=== PATIENT | male | born 1945 | race Caucasian/White ===

== ENCOUNTER 2018-03-31 12:22 | Emergency (ER) | payer OTHER ==
--- NOTE | 2018-03-31 13:25 | EDPHY ---
H & P Time Seen by Provider: 03/31/18 12:59 HPI/ROS: HPI Right hip dislocation. 72-year-old male by private vehicle with his friends. This patient was skiing up at the [employer]. He bent over to tightening his ski boot in an awkward way and felt his right prosthetic hip dislocate. He reports that this is the 3rd or 4th time this has happened. He denies any other complaint or injury. He denies any loss of sensation or weakness in his right lower extremity. ROS: Constitutional: No fever, no chills. No weakness. Musculoskeletal: No back pain. No neck pain. As above. No other extremity pain. Skin: No lacerations or abrasions. Neurological: No headache. No focal weakness or altered sensation. Past medical history: Hypertension, bilateral hip replacements, adenoidectomy, tendon repair in right foot, left shoulder repair, knee surgeries. Social history: Nonsmoker. He is here with his friends. Denies alcohol. Physical Exam: General Appearance: Alert, no distress. This patient is responding to questions appropriately and in full sentences. This patient appears well- hydrated and well-nourished. Head: Normocephalic atraumatic. Eyes: Pupils equal and round no pallor or injection. No lid edema, erythema or injection. Neurological: Motor sensory function is grossly intact. Cranial nerves are normal. Skin: Warm and dry, no rashes. No lacerations or abrasions. Musculoskeletal: Neck is supple and nontender. Extremities are symmetrical except for shortening and external rotation of the right lower extremity in comparison to the left lower extremity. The right lower extremity is neurovascularly intact. All joints range without pain or impingement except the right hip. Psychiatric: No agitation. No depression. Database: EKG: Imaging: Right hip x-ray series: Significant for right posterior prosthetic hip dislocation. Interpreted by me. Procedures: Procedure: Procedural sedation. Indication: Right hip dislocation. A pre-sedation evaluation was completed on the patient just prior to the procedure. Patient is an appropriate candidate for procedural sedation with ASA class 1E. Mallampati class I. Patient assessed as 332. The risks of the sedation were discussed including but not limited to dysrhythmia, need for airway intervention or general anesthesia, disability, ; and verbal consent obtained. A timeout was observed and patient's identity confirmed. The patient was sedated with 85 mg of IV ketamine 1st attempt, 40 mg of IV ketamine slow push 2nd attempt with success. The patient was monitored with continuous pulse oximetry, capnography, and monitoring specialist. There were no complications and no significant hypoxemia. I remained at the bedside for the sedation. The total time I spent in the procedural sedation was 35 min. Procedure: Dislocation reduction left hip. The right hip was reduced in the usual fashion without complications. Post reduction the patient's neurovascular exam is normal. Post reduction x-ray demonstrates reduction of the joint to the anatomic position. The procedure was performed by myself. Emergency department course: Triage vital signs reviewed and are normal. An IV was placed. The patient was moved from room for to room 1 for procedural sedation. Low-dose IV ketamine will be given for sedation. Patient's medication allergies were reviewed. 3:00 p.m., the patient was re-evaluated, resting comfortably at this time. He is feeling much better. He is still coming out of his sedation. Right lower extremity is neurovascularly intact. Results of his x-rays were discussed with him. 3:30 p.m., patient up and ambulatory under his own power without difficulty. He denies any significant pain. He is asking me if he can go skiing. He feels comfortable going home with his friends who are driving. I discussed follow-up with his docketing specialist at [facility]. Return to emergency department precautions were reviewed with him. All of his questions were answered. He was discharged from the emergency department in good condition with his friends. Differential Diagnosis: The differential diagnosis on this patient includes but is not limited to dislocation of right prosthetic hip. Fracture unlikely. This represents a partial list of diagnoses considered. These considerations are based on history , physical exam, past history, reassessment and diagnostic testing. Smoking Status: Never smoked Constitutional: Initial Vital Signs Temperature (C) 36.6 C 03/31/18 12:27 Heart Rate 66 03/31/18 12:27 Respiratory Rate 16 03/31/18 12:27 Blood Pressure 120/74 03/31/18 12:27 O2 Sat (%) 95 03/31/18 12:27 O2 Delivery Mode [Post Room Air Procedure 4th] O2 Delivery Mode [Post Room Air Procedure 3rd] O2 Delivery Mode [Post Room Air Procedure 2nd] O2 Delivery Mode [Post Non-Rebreather Mask Procedure 1st] O2 Delivery Mode [Procedural Non-Rebreather Mask 6th] O2 Delivery Mode [Procedural Non-Rebreather Mask 5th] O2 Delivery Mode [Procedural Non-Rebreather Mask 4th] O2 Delivery Mode [Procedural Non-Rebreather Mask 3rd] O2 Delivery Mode [Procedural Non-Rebreather Mask 2nd] O2 Delivery Mode [Procedural Non-Rebreather Mask 1st] O2 Delivery Mode [.Immediate Room Air Pre-Procedure] O2 Delivery Mode Room Air O2 (L/minute) [Post Procedure 10 1st] O2 (L/minute) [Procedural 6th] 10 O2 (L/minute) [Procedural 5th] 10 O2 (L/minute) [Procedural 4th] 10 O2 (L/minute) [Procedural 3rd] 10 O2 (L/minute) [Procedural 2nd] 10 O2 (L/minute) [Procedural 1st] 10 Allergies/Adverse Reactions: acetaminophen [From Percocet] Allergy (Verified 03/31/18 12:31) aspirin [From Percodan] Allergy (Verified 03/31/18 12:31) naproxen Allergy (Verified 03/31/18 12:31) oxycodone [From Percocet] Allergy (Verified 03/31/18 12:31) Home Medications: Medication Instructions Recorded Allopurinol 03/31/18 Amlodipine Besylate 03/31/18 Hydrochlorothiazide 03/31/18 Lisinopril 03/31/18 Medical Decision Making - Diagnostics Imaging Results: Imaging Impressions Hip X-Ray 03/31/18 13:21 Impression: Posterior dislocation of the hip arthroplasty. Hip X-Ray 03/31/18 14:20 Impression: Persistent posterior right hip arthroplasty dislocation. Hip X-Ray 03/31/18 14:20 Impression: Apparent interval reduction of right hip arthroplasty dislocation. - Data Points Medications Given: Discontinued Medications Ketamine HCl (Ketamine) 50 mg IVP EDNOW ONE Stop: 03/31/18 14:02 Last Admin: 03/31/18 14:15 Dose: 85 mg Ketamine HCl (Ketamine) 30 mg IVP EDNOW ONE Stop: 03/31/18 14:31 Last Admin: 03/31/18 14:30 Dose: 40 mg Departure - Departure Disposition: Home, Routine, Self-Care Clinical Impression: Hip dislocation, right Condition: Good Instructions: Hip Dislocation (ED) Additional Instructions: Read and follow provided instructions. Follow-up with your docketing specialist at [facility], within the next 2-3 days for re-evaluation as discussed. Ibuprofen dosin mg every 6 hours with meals for the next 3 days only. Take only as needed for pain. Return to the emergency department for pain, loss of sensation or weakness or other serious concerns. Referrals: NONE *PRIMARY CARE P,. [Primary Care Provider] - As per Instructions
[2018-03-31] MEDS ORDERED: KETAMINE 500 MG/10 ML VIAL IVP ONE ×2 (14:01→14:30)
[2018-03-31] MEDS ORDERED: KETAMINE 200 MG/20 ML VIAL ONE (14:02)
[2018-03-31] MEDS ORDERED: KETAMINE IVP ONE (14:30)
[2018-03-31 15:46] VITALS: BP 130/79
== END 2018-03-31 15:46 | disposition home or self-care (01) ==
PROC: 0SS9XZZ Reposition Right Hip Joint, External Approach (ICD-10-PCS; principal; 2018-03-31)
DX: S73.004A Unspecified dislocation of right hip, initial encounter (principal); I10 Essential (primary) hypertension; V00.321A Fall from snow-skis, initial encounter; Y93.23 Activity, snow (alpine) (downhill) skiing, snowboarding, sledding, tobogganing and snow tubing; Y92.828 Other wilderness area as the place of occurrence of the external cause; Z96.643 Presence of artificial hip joint, bilateral